=== PATIENT | female | born 1980 | race Caucasian/White ===

== ENCOUNTER 2016-10-22 07:01 | Outpatient (CLI) | payer BC ==
[~2016-10-22] VITALS: Ht 157.5 cm; Wt 111.1 kg
[2016-10-22 07:37] LABS: HEMOGLOBIN 12.8 gm/dl (12.3-15.3); RED BLOOD COUNT 4.72 M/UL (4.00-5.10); WHITE BLOOD COUNT 8.8 K/UL (4.5-11.0)
[2016-10-22 08:03] LABS: BUN/CREATININE RATIO 15 (0-10)
[2016-10-22] MEDS ORDERED: ZOVIRAX 200 MG200 MG PO (09:19)
[2016-10-22] MEDS ORDERED: ASPIR-LOW81 MG PO (09:19)
[2016-10-22] MEDS ORDERED: BYSTOLIC5 MG PO (09:20)
[2016-10-22] MEDS ORDERED: FLEXERIL 10 MG10 MG PO (09:20)
[2016-10-22] MEDS ORDERED: PROTONIX 40 MG40 M1 PO (09:21)
[2016-10-22] MEDS ORDERED: METFORMIN HCL500 M2 PO (09:21)
[2016-10-22] MEDS ORDERED: NITROSTAT 0.40.4 MG SL (09:22)
[2016-10-22] MEDS ORDERED: SUDAFED 12-HOU120 MG PO (09:23)
[2016-10-22] MEDS ORDERED: IMITREX50 MG PO (09:23)
[2016-10-22] MEDS ORDERED: VITAMIN D350000 UNIT PO (09:24)
[2016-10-22] MEDS ORDERED: IMDUR ER TAB 3030 MG PO (09:25)
[2016-10-22 12:54] LABS: HEMOGLOBIN 12.9 gm/dl (12.3-15.3); RED BLOOD COUNT 4.67 M/UL (4.00-5.10)
[2016-10-22 13:04] LABS: BUN/CREATININE RATIO 13 (0-10)
[2016-10-23 04:01] LABS: RED BLOOD COUNT 4.39 M/UL (4.00-5.10); WHITE BLOOD COUNT 8.6 K/UL (4.5-11.0)
[2016-10-23 04:27] LABS: BUN/CREATININE RATIO 13 (0-10)
[2016-10-23] MEDS ORDERED: LIPITOR80 MG PO (10:23)
[2016-10-23] MEDS ORDERED: BRILINTA90 MG PO (10:35)
== END 2016-10-23 09:00 | disposition home or self-care (01) ==
LOC: CATH 07:01 → PROG CARE 13:06 → CATH 10-23 09:00
PROVIDERS: Internal Medicine
DX: I20.9 Angina pectoris, unspecified (principal); R94.39 Abnormal result of other cardiovascular function study; I10 Essential (primary) hypertension; E78.5 Hyperlipidemia, unspecified; E28.2 Polycystic ovarian syndrome; E66.01 Morbid (severe) obesity due to excess calories; Z82.49 Family history of ischemic heart disease and other diseases of the circulatory system; Z98.890 Other specified postprocedural states; Z68.41 Body mass index [BMI] 40.0-44.9, adult; Z87.891 Personal history of nicotine dependence; Z79.84 Long term (current) use of oral hypoglycemic drugs; Z79.82 Long term (current) use of aspirin; Z79.899 Other long term (current) drug therapy
CPT/HCPCS: 36415; 80048; 82550; 82553; 84484; 84703; 85025; 85027; 85610; 85730; 93005; 99152; 99153; C1725; C1769; C1874; C1887; C1894; C9600; J0583; J1644; J2250; J3010; J7030; Q9963

== ENCOUNTER → 2020-04-19 | Outpatient (CLI) | payer BC ==
[~2020-04-19] MED LIST: ASPIR-LOW81 MG PO; BRILINTA90 MG PO; BUSPIRONE HCL10 MG PO; BYSTOLIC10 MG PO; DRISDOL50000 UNIT PO; FLEXERIL 10 MG10 MG PO; GLUCOPHAGE 500500 MG PO; HYDROCHLOROTH12.5 M1 PO; IMDUR ER TAB 3030 MG PO; IMITREX50 MG PO; ISONIAZID100 MG PO; LIPITOR80 MG PO; METFORMIN HCL500 M2 PO; NITROSTAT 0.40.4 MG SL; OMEPRAZOLE20 MG PO; PROZAC10 MG PO; SPRINTEC 28 DA1 EACH PO; SUDAFED 12-HOU120 MG PO; ZOVIRAX 800 MG800 MG PO; ZYRTEC10 MG PO
== END ==
LOC: HEART 5 15:43
DX: R07.9 Chest pain, unspecified (principal); R00.2 Palpitations

== ENCOUNTER → 2020-06-07 | Outpatient (CLI) | payer BC | LOC: HEART 5 11:25 | DX: R00.2 Palpitations (principal); I25.10 Atherosclerotic heart disease of native coronary artery without angina pectoris; I34.0 Nonrheumatic mitral (valve) insufficiency; Z95.1 Presence of aortocoronary bypass graft | CPT/HCPCS: 93306 ==

== ENCOUNTER → 2020-08-24 | Outpatient (CLI) | payer BC | LOC: OPSV 06:46 | DX: D50.9 Iron deficiency anemia, unspecified (principal); R06.02 Shortness of breath; R53.83 Other fatigue | CPT/HCPCS: 96365; J1756 ==

== ENCOUNTER → 2020-08-28 | Outpatient (CLI) | payer BC ==
[~2020-08-28] VITALS: Ht 160 cm; Wt 108.0 kg
== END ==
LOC: OPSV 07:00
DX: D50.9 Iron deficiency anemia, unspecified (principal); R06.02 Shortness of breath
CPT/HCPCS: 96365; J1756

== ENCOUNTER → 2020-08-30 | Outpatient (CLI) | payer BC ==
[~2020-08-30] VITALS: Ht 160 cm; Wt 108.0 kg
== END ==
LOC: OPSV 07:00
DX: D50.9 Iron deficiency anemia, unspecified (principal); R06.02 Shortness of breath; R53.83 Other fatigue
CPT/HCPCS: 96365; J1756

== ENCOUNTER → 2020-09-11 | Outpatient (CLI) | payer BC ==
[~2020-09-11] VITALS: Ht 160 cm; Wt 108.0 kg
== END ==
LOC: OPSV 09-04 07:00
DX: D50.9 Iron deficiency anemia, unspecified (principal); R53.83 Other fatigue; R06.02 Shortness of breath
CPT/HCPCS: 96365; J1756

== ENCOUNTER → 2020-09-13 | Outpatient (CLI) | payer BC ==
[~2020-09-13] VITALS: Ht 160 cm; Wt 108.0 kg
== END ==
LOC: OPSV 06:54
DX: R53.83 Other fatigue (principal); D50.9 Iron deficiency anemia, unspecified; R06.02 Shortness of breath
CPT/HCPCS: 96365; J1756

== ENCOUNTER → 2021-06-14 | Outpatient (CLI) | payer BC | LOC: EXRD 10:10 | DX: M53.3 Sacrococcygeal disorders, not elsewhere classified (principal) | CPT/HCPCS: 72220 ==

== ENCOUNTER 2021-08-29 08:59 | Emergency (ER) | payer BC ==
[2021-08-29 09:31] LABS: HEMOGLOBIN 14.7 gm/dl (12.3-15.3); RED BLOOD COUNT 4.88 M/UL (4.00-5.10); WHITE BLOOD COUNT 8.2 K/UL (4.5-11.0)
[2021-08-29 10:04] LABS: BUN/CREATININE RATIO 21 (0-10)
== END 2021-08-29 13:00 | disposition home or self-care (01) ==
LOC: ER1 08:59
PROVIDERS: Emergency Medicine
DX: R07.89 Other chest pain (principal); I51.9 Heart disease, unspecified; E78.5 Hyperlipidemia, unspecified; Z95.5 Presence of coronary angioplasty implant and graft; Z90.49 Acquired absence of other specified parts of digestive tract; Z95.1 Presence of aortocoronary bypass graft
CPT/HCPCS: 71045; 80053; 81001; 82550; 82553; 84484; 85025; 93005; 99285

== ENCOUNTER → 2021-09-20 | Outpatient (CLI) | payer BC | LOC: MRI 09-19 13:00 | DX: G25.0 Essential tremor (principal) | CPT/HCPCS: 70553; A9577 ==